=== PATIENT | female | born 2000 | race Caucasian/White ===

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

== ENCOUNTER 2023-10-27 00:54 | Emergency (ER) | payer SELFPAY ==
[~2023-10-27] VITALS: Ht 165.1 cm; Wt 68.0 kg
[2023-10-27 03:30] LABS: BILIRUBIN Negative (Negative); BLOOD Negative (Negative); CLARITY Cloudy (Clear); COLOR Yellow (Yellow); GLUCOSE Negative (Negative); KETONE 1+ (Negative); LEUKO ESTERASE 1+ (Negative); NITRITE Negative (Negative); PH 5.5 (4.5-8.0); SPECIFIC GRAVITY 1.025 (1.001-1.030); UROBILINOGEN 0.2 E.U./dl (0.0-1.0)
[2023-10-27 04:01] LABS: BACTERIA 2+; MUCOUS 1+
[2023-10-28] MEDS ORDERED: CIPRO500 MG PO (13:44)
== END 2023-10-27 03:46 | disposition home or self-care (01) ==
LOC: ED 00:54
PROVIDERS: Emergency Medicine
DX: R10.12 Left upper quadrant pain (principal)

== ENCOUNTER 2023-10-28 09:48 | Emergency (ER) | payer SELFPAY ==
[~2023-10-28] VITALS: Ht 165.1 cm; Wt 68.0 kg
[2023-10-28] MEDS ORDERED: SODIUM CHLORIDE 0.9% 1,000 ML IV ONE (10:05)
[2023-10-28 10:22] LABS: BASO % 0.4 % (0.0-1.0); EOS # 0.1 10*3/uL (0.0-0.4); EOS % 1.9 % (1.0-4.0); HEMATOCRIT 42.9 % (37.0-47.0); LYMPH # 1.6 10*3/uL (1.3-4.4); LYMPH % 24.5 % (27.0-41.0); MEAN CELL VOLUME 94.3 fl (81.0-99.0); MEAN CORPUSCULAR HGB 31.2 pg (27.0-31.0); MEAN CORPUSCULAR HGB CONC 33.1 g/dl (33.0-37.0); MEAN PLATELET VOLUME 10.3 fl (9.6-12.3); MONO # 0.8 10*3/uL (0.1-1.0); MONO % 12.6 % (3.0-9.0); NEUT % 60.5 % (47.0-73.0); PLATELET COUNT AUTOMATED 251 10*3/uL (130-400); RED BLOOD COUNT 4.55 10*6/uL (4.10-5.10); RED CELL DISTRI WIDTH 12.4 % (0-14.5); WHITE BLOOD COUNT 6.7 10*3/uL (4.8-10.8)
[2023-10-28 10:52] LABS: ALKALINE PHOSPHATASE 63 U/L (46-116); BUN 8 mg/dl (9-23); CHLORIDE 106 mmol/L (98-107); LIPASE 31 U/L (12-53); POTASSIUM 3.9 mmol/L (3.4-5.1); SGPT/ALT 14 U/L (5-49); TOTAL PROTEIN 7.1 gm/dL (6.0-8.0)
[2023-10-28 10:52] LABS: BILIRUBIN Negative (Negative); BLOOD Negative (Negative); CLARITY Clear (Clear); COLOR Yellow (Yellow); GLUCOSE Negative (Negative); KETONE 2+ (Negative); LEUKO ESTERASE Negative (Negative); NITRITE Negative (Negative)
[2023-10-28] MEDS ORDERED: Ketorolac Tromethamine 30 MG/ML VIAL IV ONE (11:10)
[2023-10-28 11:18] LABS: BACTERIA 3+; EPITHELIAL CELLS 16-20
[2023-10-28] MEDS ORDERED: Ceftriaxone Sodium 1 GM/10 ML SYR IV ONE (12:50)
[2023-10-28] MEDS ORDERED: CIPRO500 MG PO (13:44)
== END 2023-10-28 14:00 | disposition home or self-care (01) ==
LOC: ED 09:48
PROVIDERS: Internal Medicine
DX: N39.0 Urinary tract infection, site not specified (principal); R11.2 Nausea with vomiting, unspecified